=== PATIENT | female | born 1945 | race Hispanic/Latino ===

== ENCOUNTER 2016-11-03 16:01 | Emergency (ER) | payer MEDICARE ==
[2016-11-03 16:09] VITALS: TEMP 98
--- NOTE | 2016-11-03 16:38 | ED PDOC ---
Arrival/HPI - General Chief Complaint: ENT Problem Time Seen by Provider: 11/03/16 16:23 Historian: Patient, Parent, Family - History of Present Illness Narrative History of Present Illness (Text): 11/03/16 16:35 70 y/o female, pmh including hypothyroidism, nkda, bib for choking and coughing on the food particle while eating sushi plus the rice at the restaurant x 2 hours. Pt. stated that she was eating and talking with the mouth full, feels the food got into the airway which she put her hand into her throat and vomited which it vomitted out a piece of noodle/zucchini that relief her problem. Pt. stated that she feels well now, no abdominal pain or chest pain, no numbness or tingling, no drooling, eating and drinking well, no other medical or psychological complaints. Past Medical History - Provider Review Nursing Documentation Reviewed: Yes - Infectious Disease Hx of Infectious Diseases: None - Reproductive Menopause: Yes - Endocrine/Metabolic Hx Hypothyroidism: Yes - Psychiatric Hx Substance Use: No - Anesthesia Hx Anesthesia: No Hx Anesthesia Reactions: No Hx Malignant Hyperthermia: No Family/Social History - Physician Review Nursing Documentation Reviewed: Yes Family/Social History: Unknown Family HX Smoking Status: Never Smoked Hx Alcohol Use: Yes Frequency of alcohol use: Socially Hx Substance Use: No Allergies/Home Meds Allergies/Adverse Reactions: Allergies No Known Allergies Allergy (Verified 11/03/16 16:09) Home Medications: Home Meds Medication Instructions Recorded Confirmed Levothyroxine [Synthroid] 1 tab PO DAILY 11/03/16 11/03/16 Review of Systems - Review of Systems Constitutional: absent: Fatigue, Fevers Eyes: absent: Vision Changes ENT: absent: Hearing Changes Respiratory: absent: Cough, Sputum Cardiovascular: absent: Chest Pain Gastrointestinal: absent: Abdominal Pain, Nausea, Vomiting Neurological: absent: Headache, Dizziness, Focal Weakness, Gait Changes, Speech Changes, Facial Droop, Disequilibrium, Seizure Physical Exam Vital Signs Reviewed: Yes Vital Signs Temp Pulse Resp BP Pulse Ox 11/03/16 18:33 80 16 116/70 99 11/03/16 16:09 75 19 112/67 100 11/03/16 16:04 98 F 75 19 112/67 100 Temperature: Afebrile Blood Pressure: Normal Pulse: Regular Respiratory Rate: Normal Appearance: Positive for: Well-Appearing, Non-Toxic, Comfortable Pain Distress: None Mental Status: Positive for: Alert and Oriented X 3 - Systems Exam Head: Present: Atraumatic, Normocephalic Pupils: Present: PERRL Extroacular Muscles: Present: EOMI Conjunctiva: Present: Normal Mouth: Present: Moist Mucous Membranes Pharnyx: No: ERYTHEMA, EXUDATE, TONSILS ENLARGED, Peritonsilar Swelling, Uvular Deviation, Muffled/Hoarse Voice, Strider, Soft Palate/Uvular Edema Nose (External): Present: Atraumatic. No: Abrasion, Contusion, Laceration, Lesions Nose (Internal): Present: Normal Inspection, No Active Bleeding. No: Rhinorrhea , Septal Hematoma, Epistaxis Neck: Present: Normal Range of Motion, Trachea Midline. No: Meningeal Signs, MIDLINE TENDERNESS, Paraspinal Tenderness, Lymphadenopathy Respiratory/Chest: Present: Clear to Auscultation, Good Air Exchange. No: Respiratory Distress, Accessory Muscle Use Cardiovascular: Present: Regular Rate and Rhythm, Normal S1, S2. No: Murmurs Abdomen: Present: Normal Bowel Sounds. No: Tenderness, Distention, Peritoneal Signs, Rebound, Guarding Back: Present: Normal Inspection Upper Extremity: Present: Normal Inspection. No: Cyanosis, Edema Lower Extremity: Present: Normal Inspection. No: Edema Neurological: Present: GCS=15, Speech Normal, Motor Func Grossly Intact, Gait Normal, Memory Normal Skin: Present: Warm, Dry, Normal Color. No: Rashes Psychiatric: Present: Alert, Oriented x 3, Normal Insight, Normal Concentration Medical Decision Making ED Course and Treatment: 11/03/16 16:38 -chest and neck soft tissue xrays -observe and reassess 11/03/16 18:11 -xrays of the chest and neck tissue show no acute emergent findings. There is copd and scarring noted on the chest which I explained to the patient which need outpatient follow up. Soft tissue neck show no visible foreign bodies. -Pt. is asymptomatic now, given food and drinks which she tolerated well, will discharge home. -Discharge home with education on soft food diet for these 2 days, follow up with your own pmd and GI for follow up, return to the ER for any new or worsening signs or symptoms. - RAD Interpretation Radiology Orders: 11/03/16 16:33 CHEST TWO VIEWS (PA/LAT) [RAD] Stat NECK SOFT TISSUE [RAD] Stat HISTORY: medical clearance post choking, asymptomatic COMPARISON: No prior. TECHNIQUE: Chest PA and lateral FINDINGS: LUNGS: Lung kovacs are hyperinflated consistent with a other underlying emphysema or COPD. No focal consolidation. There may be some minor scarring changes left lung base. PLEURA: Mild biapical pleural thickening air what probably represents mild adjacent parenchymal scarring or fibrosis. No significant pleural effusion identified. No pneumothorax apparent. CARDIOVASCULAR: Heart size within range of normal. OSSEOUS STRUCTURES: No significant abnormalities. VISUALIZED UPPER ABDOMEN: Normal. OTHER FINDINGS: None. IMPRESSION: Hyperinflation consistent with emphysema and or COPD. No focal consolidation however there may be some minor scarring changes left lung base. Mild biapical pleural thickening and what probably represents adjacent parenchymal scarring and/or fibrosis Glue Jointer Feeder: Radiologist - PA / VENEER SPLICER / Resident Statement / has reviewed & agrees with the documentation as recorded. Disposition/Present on Arrival - Present on Arrival Any Indicators Present on Arrival: No History of DVT/PE: No History of Uncontrolled Diabetes: No Urinary Catheter: No History of Decub. Ulcer: No History Surgical Site Infection Following: None - Disposition Have Diagnosis and Disposition been Completed?: Yes Diagnosis: General medical examination Disposition: HOME/ ROUTINE Disposition Time: 16:39 Patient Plan: Discharge Condition: GOOD Additional Instructions: Discharge home with education on soft food diet for these 2 days, follow up with your own pmd and GI for follow up, return to the ER for any new or worsening signs or symptoms. Referrals: Rosas Tran DO [Staff Provider] - Follow up with primary [facility] at [facility] [Outside] - Follow up with primary Forms: WORK NOTE
[2016-11-03 18:37] VITALS: BP 116/70; PULSE 80; RESP 16; O2SAT 99
--- NOTE | 2016-11-04 10:22 | RAD ---
HISTORY: medical clearance post choking, asymptomatic COMPARISON: No prior. TECHNIQUE: Chest PA and lateral FINDINGS: LUNGS: Lung kovacs are hyperinflated consistent with a other underlying emphysema or COPD. No focal consolidation. There may be some minor scarring changes left lung base. PLEURA: Mild biapical pleural thickening air what probably represents mild adjacent parenchymal scarring or fibrosis. No significant pleural effusion identified. No pneumothorax apparent. CARDIOVASCULAR: Heart size within range of normal. OSSEOUS STRUCTURES: No significant abnormalities. VISUALIZED UPPER ABDOMEN: Normal. OTHER FINDINGS: None. IMPRESSION: Hyperinflation consistent with emphysema and or COPD. No focal consolidation however there may be some minor scarring changes left lung base. Mild biapical pleural thickening and what probably represents adjacent parenchymal scarring and/or fibrosis
--- NOTE | 2016-11-04 15:36 | RAD ---
PROCEDURE: Soft tissue neck dated 11/03/2016 HISTORY: medical clearance post choking, asymptomatic COMPARISON: No prior study available for comparison. Correlation made with concurrent radiographs of the chest. TECHNIQUE: AP and lateral radiographs of the neck performed with soft tissue technique provided. Note that the AP view is extremely limited due to overlying mandible which obscures most of the cervical airway. FINDINGS: Current study reveals a thin linear-elliptical shaped approximately 14 mm x 1.8 mm hyperdense focus along the posterior margin of the airway anterior to and abutting the prevertebral soft tissues that extends from approximately mid C4 through the mid to upper C5 level. This could represent carotid calcification however the possibility of a radiopaque foreign body cannot be completely excluded. Consider repeat neck radiographs with obliques views and AP with head in modified SMV or extended palomino view. Prevertebral soft tissues are otherwise unremarkable. Airway is patent in the lateral projection however not visualized in the AP projection. Multilevel degenerative spondylosis of the cervical spine. Note that these findings were discussed with emergency room AGUSTO Paredes at approximately 2:30 p.m. with written down and read back verification. IMPRESSION: There is a thin linear/elliptical shaped hyperdense focus within the posterior margins of the airway anterior and abutting the prevertebral soft tissues at approximately the C4/C5 level which is of uncertain etiology. While this could represent carotid calcification, the possibility of a radiopaque foreign body cannot be excluded. Repeat radiographs recommended as detailed above. Emergency room staff aware.
== END 2016-11-03 18:37 | disposition home or self-care (01) ==
LOC: ED 16:01
DX: Z00.00 Encounter for general adult medical examination without abnormal findings (principal)

== ENCOUNTER 2016-11-04 19:23 | Emergency (ER) | payer MEDICARE ==
[2016-11-04 19:36] VITALS: BP 102/65; PULSE 80; TEMP 99
--- NOTE | 2016-11-04 19:53 | ED PDOC ---
Arrival/HPI - General Chief Complaint: ENT Problem Time Seen by Provider: 11/04/16 19:41 Historian: Patient - History of Present Illness Narrative History of Present Illness (Text): 11/04/16 19:50 70 y/o female, pmh including hypothyroidism, nkda, here for the repeat xray due to the inconclusive finding on the xray. pt. was seen here for the s/p choking on the sushi yesterday with no bony involvement and feeling better today. Pt. was call back to the ER due to the xray show possible carotid artery calcification vs. foreign bodies. Pt. stated that she feels better already. Pt. has no dizziness, no neck pain or throat pain, no palpitation, no rash, no other medical or psychological complaints. Past Medical History - Provider Review Nursing Documentation Reviewed: Yes - Infectious Disease Hx of Infectious Diseases: None - Cardiac Hx Cardiac Disorders: No - Pulmonary Hx Respiratory Disorders: No - Neurological Hx Neurological Disorder: No - HEENT Hx Sinusitis: Yes - Renal Hx Renal Disorder: No - Endocrine/Metabolic Hx Hypothyroidism: Yes - Hematological/Oncological Hx Blood Disorders: No - Integumentary Hx Dermatological Disorder: No - Musculoskeletal/Rheumatological Hx Arthritis: Yes - Gastrointestinal Hx Gastrointestinal Disorders: No - Genitourinary/Gynecological Hx Genitourinary Disorders: No - Psychiatric Hx Psychophysiologic Disorder: No Hx Substance Use: No - Anesthesia Hx Anesthesia: No Hx Anesthesia Reactions: No Hx Malignant Hyperthermia: No Family/Social History - Physician Review Nursing Documentation Reviewed: Yes Family/Social History: Unknown Family HX Smoking Status: Never Smoked Hx Alcohol Use: Yes Hx Substance Use: No Allergies/Home Meds Allergies/Adverse Reactions: Allergies No Known Allergies Allergy (Verified 11/04/16 19:27) Home Medications: Home Meds Medication Instructions Recorded Confirmed Levothyroxine [Synthroid] 1 tab PO DAILY 11/03/16 11/04/16 Review of Systems - Review of Systems Constitutional: absent: Fatigue, Fevers Eyes: absent: Vision Changes ENT: absent: Hearing Changes Respiratory: absent: Cough Cardiovascular: absent: Chest Pain Gastrointestinal: absent: Abdominal Pain, Diarrhea, Nausea, Vomiting Musculoskeletal: absent: Arthralgias Physical Exam Vital Signs Reviewed: Yes Vital Signs Temp Pulse Resp BP Pulse Ox 11/04/16 19:45 99.0 F 80 16 97 11/04/16 19:29 99.0 F 80 16 102/65 98 Temperature: Afebrile Blood Pressure: Normal Pulse: Regular Respiratory Rate: Normal Appearance: Positive for: Well-Appearing, Non-Toxic, Comfortable Pain Distress: None Mental Status: Positive for: Alert and Oriented X 3 - Systems Exam Head: Present: Atraumatic, Normocephalic Pupils: Present: PERRL Mouth: Present: Moist Mucous Membranes, Normal Lips, Normal Tounge, Normal Teeth. No: Drooling, Trismus Pharnyx: No: ERYTHEMA, EXUDATE, TONSILS ENLARGED, Uvular Deviation, Soft Palate/ Uvular Edema Neck: Present: Normal Range of Motion, Trachea Midline. No: Meningeal Signs, MIDLINE TENDERNESS, Paraspinal Tenderness, Lymphadenopathy, Bruit Respiratory/Chest: Present: Clear to Auscultation, Good Air Exchange. No: Respiratory Distress, Accessory Muscle Use, Retracting, Rhonchi Cardiovascular: Present: Regular Rate and Rhythm, Normal S1, S2. No: Murmurs Neurological: Present: GCS=15, Speech Normal, Motor Func Grossly Intact, Gait Normal, Memory Normal Lymphatic: No: Cervical Adenopathy Psychiatric: Present: Alert, Oriented x 3, Normal Insight, Normal Concentration Medical Decision Making ED Course and Treatment: 11/04/16 19:53 -repeat cervical spine and soft tissue neck with swimmer's view. 11/04/16 21:13 -Pt. is completely asymptomatic. 11/04/16 21:33 -Mi and Dr. Hernandes offered laryngoscopy for confirmation but the patient and daughter refused as she is asymptomatic. -Cervical and soft tissue neck reports and films reviewed with Dr. Hernandes as we discussed about the case, he suggest to discharge home with outpatient ENT and pmd follow up. -Discharge home with education on follow up with your own pmd and ENT within 2 days, return to the ER for any new or worsening signs or symptoms. - RAD Interpretation Radiology Orders: 11/04/16 19:41 CERVICAL SPINE >18YR W/OBLIQUE [RAD] Stat NECK SOFT TISSUE [RAD] Stat Cervical xray: TECHNIQUE: Frontal, lateral and oblique views of the cervical spine. COMPARISON: No relevant prior studies available. FINDINGS: Vertebrae: Unremarkable. No acute fracture. Normal alignment. Disc spaces: Degenerative disc disease throughout cervical spine with anterior osteophytosis. Soft tissues: No radiopaque foreign body is seen in the pharynx, hypopharynx or visualized upper airways. Cricoid and thyroid cartilage calcification seen. IMPRESSION: No radiopaque foreign body is seen in the pharynx, hypopharynx or visualized upper airways. Cricoid and thyroid cartilage calcification seen. Thank you for allowing us to participate in the care of your patient. Dictated and Authenticated by: Coral Navarro MD 11/04/2016 9:04 PM Eastern Time ( & [place]) Cervical soft tissue neck: FINDINGS: Airway: Unremarkable. No abnormal narrowing. Bones/joints: Unremarkable. Soft tissues: Small densities are seen within the vallecula. This density appear to be within the prevertebral soft tissues on the axial cervical spine images suggesting age related cavitation within the soft tissues. Other findings: Degenerative changes of cervical spine with degenerative disc disease and osteophytosis. IMPRESSION: Small densities are seen within the vallecula. This density appear to be within the prevertebral soft tissues on the axial cervical spine images suggesting age related cavitation within the soft tissues. Please correlate with physical exam for exclusion of foreign body in vallecula. Thank you for allowing us to participate in the care of your patient. Dictated and Authenticated by: Coral Navarro MD 11/04/2016 9:08 PM Eastern Time ( & [place]) [employer] Station Operator: Radiologist - PA / WATERSHED PROGRAM MANAGER / Resident Statement / has reviewed & agrees with the documentation as recorded. Disposition/Present on Arrival - Present on Arrival Any Indicators Present on Arrival: No History of DVT/PE: No History of Uncontrolled Diabetes: No Urinary Catheter: No History of Decub. Ulcer: No History Surgical Site Infection Following: None - Disposition Have Diagnosis and Disposition been Completed?: Yes Diagnosis: Abnormal x-ray of neck Disposition: HOME/ ROUTINE Disposition Time: 21:14 Patient Plan: Discharge Patient Problems: Current Active Problems Problem Status Diagnosed Abnormal x-ray of neck Acute Condition: GOOD Additional Instructions: Discharge home with education on follow up with your own pmd and ENT within 2 days, return to the ER for any new or worsening signs or symptoms. Referrals: David Olivares MD [Primary Care Provider] - Follow up with primary Kimo Hays DO [Staff Provider] - Follow up with primary Forms: WORK NOTE
[2016-11-04 23:54] VITALS: RESP 18; O2SAT 99
--- NOTE | 2016-11-05 09:26 | RAD ---
PROCEDURE: Cervical Spine Radiographs. HISTORY: Pain. COMPARISON: None. FINDINGS: BONES: Alignment maintained. No fracture. Dens Intact. DISC SPACES: There is disc degeneration at multiple levels SOFT TISSUES: Normal. No prevertebral soft tissue swelling. OTHER FINDINGS: None. IMPRESSION: Disc degeneration multiple levels
--- NOTE | 2016-11-05 09:27 | RAD ---
PROCEDURE: Cervical Spine Radiographs. HISTORY: Pain. COMPARISON: None. FINDINGS: BONES: Alignment maintained. No fracture. Dens Intact. DISC SPACES: Multilevel disc degeneration SOFT TISSUES: Normal. No prevertebral soft tissue swelling. OTHER FINDINGS: Laryngeal calcifications are seen. There is no evidence of foreign body IMPRESSION: Multilevel disc degeneration
== END 2016-11-04 21:45 | disposition home or self-care (01) ==
LOC: ED 19:23
DX: R93.8 Abnormal findings on diagnostic imaging of other specified body structures (principal); E03.9 Hypothyroidism, unspecified

== ENCOUNTER 2018-10-20 15:41 | Outpatient (CLI) | payer MEDICARE | END 2018-10-20 15:42 | disposition home or self-care (01) | LOC: RAD 15:41 ==